=== PATIENT | female | born 1990 | race Caucasian/White ===

== ENCOUNTER 2021-09-24 15:57 | Emergency (ER) | payer BC, OTHER ==
[2021-09-24 16:10] VITALS: BP 127/79; PULSE 60
[2021-09-24] MEDS ORDERED: Pantoprazole 40 MG Vial IVPUSH ONE (16:37)
[2021-09-24] MEDS ORDERED: Alum Hydrox/Mag Hydrox/Simeth 30 ML, Lidocaine 2% 15 ML PO ONE ×2 (16:37)
[2021-09-24] MEDS ORDERED: Sodium Chloride 0.9% 10 ML Syringe FLUSH PRN (16:37)
[2021-09-24 16:57] LABS: ESTIMATED GFR 119 mL/min (>60)
[2021-09-24] MEDS ORDERED: Sucralfate 1 GM Tab PO ONE (18:20)
[2021-09-24] MEDS ORDERED: Famotidine 20 MG/2 ML SDV IVPUSH ONE (18:44)
== END 2021-09-24 19:34 | disposition home or self-care (01) ==
LOC: JD.ED 15:57
DX: R10.13 Epigastric pain (principal); Z88.0 Allergy status to penicillin; Z88.5 Allergy status to narcotic agent
CPT/HCPCS: 36415; 80053; 81001; 82977; 83690; 85025; 86140; 96374; 96375; 99284; A9270; C9113; J3490